=== PATIENT | female | born 1975 | race Caucasian/White ===

== ENCOUNTER 2018-04-08 16:25 | Emergency (ER) | payer MEDICAID ==
[2018-04-08 16:33] VITALS: BMI 22.4
[2018-04-08 17:09] LABS: SQUAMOUS EPITHIAL 6 /hpf (0-5); URINE BACTERIA OCC (<OCC); URINE BILIRUBIN NEGATIVE (NEGATIVE); URINE BLOOD NEGATIVE (NEGATIVE); URINE CLARITY Hazy (Clear); URINE COLOR Yellow (YELLOW); URINE GLUCOSE (UA) NORMAL (Normal); URINE LEUKOCYTE ESTERASE 1+ Leu/uL (Negative); URINE PROTEIN 1+ mg/dL (NEGATIVE); URINE UROBILINOGEN NORMAL mg/dL (0.2-1.0)
[2018-04-08 17:12] LABS: HCG,QUALITATIVE URINE NEGATIVE (NEGATIVE)
[2018-04-08 17:13] VITALS: BP 126/76; PULSE 84; RESP 18; TEMP 99; O2SAT 100
--- NOTE | 2018-04-08 17:23 | C.PDOC ---
History Of Present Illness 42 year old female presents to the ED complaining of vaginal itching, irritation and burning for several days. Denies any rash, discharge, fever, or chills. VAG ITCH, IRRITATION BURNING X SEV DAYS. NO RASH, DC. EXAM NAD EXT VAGINA NEG. NO GROSS DC REMAINDER NEG Time Seen by Provider: 04/08/18 17:11 Chief Complaint (Nursing): Female Genitourinary History Per: Patient History/Exam Limitations: no limitations Onset/Duration Of Symptoms: Days Current Symptoms Are (Timing): Still Present Associated Symptoms: denies: Fever, Chills Past Medical History Reviewed: Historical Data, Nursing Documentation, Vital Signs - Medical History PMH: Anemia Denies: Chronic Kidney Disease Surgical History: (x 4) - [facility] Procedures BILAT TUBAL DESTRUCT NEC (11/14/13) LOW CERVICAL (11/14/13) Family History: States: No Known Family Hx - Social History Hx Alcohol Use: No Hx Substance Use: No - Immunization History Hx Tetanus Toxoid Vaccination: No Hx Influenza Vaccination: No Hx Pneumococcal Vaccination: No Review Of Systems Except As Marked, All Systems Reviewed And Found Negative. Constitutional: Negative for: Fever, Chills Genitourinary: Positive for: Dysuria, Other (vaginal itching and irritation ). Negative for: Hematuria, Vaginal Bleeding, Rash Physical Exam - Physical Exam Appears: Non-toxic, No Acute Distress Skin: Warm, Dry, No Rash Head: Normacephalic Eye(s): bilateral: Normal Inspection Nose: Normal Oral Mucosa: Moist Neck: Supple Chest: Symmetrical Cardiovascular: Rhythm Regular Respiratory: No Rales, No Rhonchi, No Wheezing, Other (NARD) Pelvic: Normal External Exam, No Vaginal Discharge Neurological/Psych: Oriented x3, Normal Speech Gait: Steady ED Course And Treatment O2 Sat by Pulse Oximetry: 100 (RA) Medical Decision Making Medical Decision Making: Plan - Urine culture Patient given follow up instructions. Instructed to return to ER if symptoms worsen or new symptoms arise. Patient given Rx for Clotrimazole and Macrobid. Disposition Counseled Patient/Family Regarding: Diagnosis, Need For Followup, Rx Given - Disposition Referrals: YOUR,OBGYN [Other] Disposition: HOME/ ROUTINE Disposition Time: 17:24 Condition: GOOD Prescriptions: Clotrimazole 1% Vaginal [Lotrimin 1% Vaginal] 45 applic VG DAILY #7 tube Nitrofurantoin Macrocrystals [Macrobid] 1 cap PO BID #14 cap Instructions: Urinary Tract Infection, Adult (DC), Vaginal Yeast Infection (DC) Forms: [facility] [employer] [facility] ([place]ian) - Clinical Impression Clinical Impression: Vaginal yeast infection, UTI (urinary tract infection) - Scribe Statement The provider has reviewed the documentation as recorded by the Scribe Emeli Womack All medical record entries made by the Scribe were at my direction and personally dictated by me. I have reviewed the chart and agree that the record accurately reflects my personal performance of the history, physical exam, medical decision making, and the department course for this patient. I have also personally directed, reviewed, and agree with the discharge instructions and disposition.
== END 2018-04-08 17:31 | disposition home or self-care (01) ==
LOC: C.ER 16:25
DX: B37.3 Candidiasis of vulva and vagina (principal); N39.0 Urinary tract infection, site not specified